=== PATIENT | female | born 1980 | race Caucasian/White ===

== ENCOUNTER 2022-08-16 12:31 | Day surgery (SDC) | payer OTHER ==
[2022-08-16] MEDS ORDERED: LIDOCAINE HCL 2% 100 MG/5 ML IJ ONE (12:32)
[2022-08-16] MEDS ORDERED: DIPRIVAN 200 MG/20 ML IV ONE (13:50)
--- NOTE | 2022-08-16 14:45 | XRAY ---
Indication: Left C2-C4 MBB. Intraoperative fluoroscopy provided for 28 seconds. 2 digital spot image submitted for interpretation demonstrates posterior needle tips projecting over the expected left C2-C4 nerve roots. Correlate with intraoperative findings/report.
--- NOTE | 2022-08-16 15:15 | XRAY ---
28 seconds of fluoroscopy was used in surgery for a left C2-C4 MBB.
[2022-08-16] MEDS ORDERED: Lactated Ringers 1,000 ML IV ONE (15:17)
== END 2022-08-16 14:45 | disposition home or self-care (01) ==
LOC: SDC-PAIN 12:31
PROVIDERS: ATTEND Psychiatry & Neurology Pain Medicine
DX: M47.812 Spondylosis without myelopathy or radiculopathy, cervical region (principal); Z79.899 Other long term (current) drug therapy
CPT/HCPCS: 64490; 64491; 72040; 77002; 81025; J2704

== ENCOUNTER 2022-09-20 10:08 | Day surgery (SDC) | payer OTHER ==
[2022-09-20] MEDS ORDERED: LIDOCAINE HCL 2% 100 MG/5 ML IJ ONE (10:09)
--- NOTE | 2022-09-20 12:50 | XRAY ---
34 seconds of fluoroscopy was used in surgery for a right C2-C4 MBB.
--- NOTE | 2022-09-20 12:54 | XRAY ---
Indication: Right C2-C4 MBB. Intraoperative fluoroscopy provided for 34 seconds. 2 digital spot image submitted for interpretation demonstrates posterior needle tips projecting over the expected right C2-C4 nerve roots. Correlate with intraoperative findings/report.
[2022-09-20] MEDS ORDERED: Lactated Ringers 1,000 ML IV ONE (13:27)
== END 2022-09-20 11:57 | disposition home or self-care (01) ==
LOC: SDC-PAIN 10:08
PROVIDERS: ATTEND Psychiatry & Neurology Pain Medicine
DX: M47.812 Spondylosis without myelopathy or radiculopathy, cervical region (principal); Z79.899 Other long term (current) drug therapy
CPT/HCPCS: 64490; 64491; 72040; 77002; 81025

== ENCOUNTER 2022-10-18 09:47 | Day surgery (SDC) | payer OTHER ==
[2022-10-18] MEDS ORDERED: BUPIVACAINE 0.5% VIAL IJ ONE (09:48)
[2022-10-18] MEDS ORDERED: DIPRIVAN 200 MG/20 ML IV ONE (11:09)
--- NOTE | 2022-10-18 12:58 | XRAY ---
Indication: Left C2-C4 MBB. Intraoperative fluoroscopy provided for 22 seconds. 2 digital spot images submitted for interpretation demonstrates posterior needle tips projecting over the expected left C2-C4 nerve roots. Correlate with intraoperative findings/report.
--- NOTE | 2022-10-18 13:08 | XRAY ---
22 seconds of fluoroscopy was used in surgery for a left C2-C4 MBB.
[2022-10-18] MEDS ORDERED: Lactated Ringers 1,000 ML IV ONE (14:02)
== END 2022-10-18 11:45 | disposition home or self-care (01) ==
LOC: SDC-PAIN 09:47
PROVIDERS: ATTEND Psychiatry & Neurology Pain Medicine
DX: M47.812 Spondylosis without myelopathy or radiculopathy, cervical region (principal); Z79.899 Other long term (current) drug therapy
CPT/HCPCS: 64490; 64491; 72040; 77002; 81025; J2704

== ENCOUNTER 2022-10-25 09:36 | Day surgery (SDC) | payer OTHER ==
[2022-10-25] MEDS ORDERED: BUPIVACAINE 0.5% VIAL IJ ONE (09:37)
[2022-10-25] MEDS ORDERED: DIPRIVAN 200 MG/20 ML IV ONE (11:04)
--- NOTE | 2022-10-25 12:13 | XRAY ---
Indication: Right C2-C4 MBB. Intraoperative fluoroscopy provided for 30 seconds. 2 digital spot image submitted for interpretation demonstrates posterior needle tips projecting over the expected right C2-C4 nerve roots. Correlate with intraoperative findings/report.
--- NOTE | 2022-10-25 12:37 | XRAY ---
30 seconds of fluoroscopy was used in surgery for a right C2-C4 MBB.
[2022-10-25] MEDS ORDERED: Lactated Ringers 1,000 ML IV ONE (14:17)
== END 2022-10-25 11:35 | disposition home or self-care (01) ==
LOC: SDC-PAIN 09:36
PROVIDERS: ATTEND Psychiatry & Neurology Pain Medicine
DX: M47.812 Spondylosis without myelopathy or radiculopathy, cervical region (principal); Z79.899 Other long term (current) drug therapy
CPT/HCPCS: 64490; 64491; 72040; 77002; 81025; J2704

== ENCOUNTER 2022-11-15 11:59 | Day surgery (SDC) | payer OTHER ==
[2022-11-15] MEDS ORDERED: LIDOCAINE HCL 1% 50 MG/5 ML VL PF IJ ONE (12:00)
[2022-11-15] MEDS ORDERED: Depo-Medrol 40 MG/ML IM ONE (12:00)
[2022-11-15] MEDS ORDERED: BUPIVACAINE 0.5% VIAL IJ ONE (12:00)
[2022-11-15] MEDS ORDERED: DIPRIVAN 200 MG/20 ML IV ONE ×2 (13:27→13:36)
[2022-11-15] MEDS ORDERED: SUBLIMAZE 100 MCG/2 ML ONE (13:45)
[2022-11-15] MEDS ORDERED: Lactated Ringers 1,000 ML IV ONE (14:29)
--- NOTE | 2022-11-15 14:45 | XRAY ---
35 seconds of fluoroscopy was used in surgery for a left C2-C4 RFA.
--- NOTE | 2022-11-15 14:47 | XRAY ---
Indication: Left C2-C4 RFA. Intraoperative fluoroscopy provided for 35 seconds. 5 digital spot image submitted for interpretation demonstrates posterior needle tips projecting over the expected left C2-C4 nerve roots. Correlate with intraoperative findings/report.
== END 2022-11-15 14:15 | disposition home or self-care (01) ==
LOC: SDC-PAIN 11:59
PROVIDERS: ATTEND Psychiatry & Neurology Pain Medicine
DX: M47.812 Spondylosis without myelopathy or radiculopathy, cervical region (principal); Z79.899 Other long term (current) drug therapy
CPT/HCPCS: 64633; 64634; 72040; 77002; 81025; J1030; J2001; J2704; J3010

== ENCOUNTER 2022-11-22 10:57 | Day surgery (SDC) | payer OTHER ==
[2022-11-22] MEDS ORDERED: BUPIVACAINE 0.5% VIAL IJ ONE (10:58)
[2022-11-22] MEDS ORDERED: XYLOCAINE 1% HCL 20 ML MDV IJ ONE (10:58)
[2022-11-22] MEDS ORDERED: DIPRIVAN 200 MG/20 ML IV ONE ×2 (13:04→13:20)
[2022-11-22] MEDS ORDERED: Versed 2 MG/2 ML Injection ONE (13:07)
--- NOTE | 2022-11-22 13:53 | XRAY ---
Indication: Right C2-C4 RFA. Intraoperative fluoroscopy provided for 33 seconds. 5 digital spot image submitted for interpretation demonstrates posterior needle tips projecting over the expected right C2-C4 nerve roots. Correlate with intraoperative findings/report.
--- NOTE | 2022-11-22 14:41 | XRAY ---
33 seconds of fluoroscopy used in surgery for a right C2-C4 RFA.
== END 2022-11-22 13:45 | disposition home or self-care (01) ==
LOC: SDC-PAIN 10:57
PROVIDERS: ATTEND Psychiatry & Neurology Pain Medicine
DX: M47.812 Spondylosis without myelopathy or radiculopathy, cervical region (principal); Z79.899 Other long term (current) drug therapy
CPT/HCPCS: 64633; 64634; 72040; 77002; 81025; J2250; J2704

== ENCOUNTER 2022-12-20 13:20 | Day surgery (SDC) | payer OTHER ==
[2022-12-20] MEDS ORDERED: LIDOCAINE HCL 1% 50 MG/5 ML VL PF IJ ONE (13:21)
[2022-12-20 14:08] LABS: HCG URINE TEST NEGATIVE (NEGATIVE)
[2022-12-20] MEDS ORDERED: DIPRIVAN 200 MG/20 ML IV ONE (15:10)
[2022-12-20] MEDS ORDERED: Lactated Ringers 1,000 ML IV ONE (15:39)
--- NOTE | 2022-12-20 16:28 | XRAY ---
Indication: Bilateral L4-S1 MBB. Intraoperative fluoroscopy provided for 18 seconds. Single digital spot image submitted for interpretation demonstrates posterior needle tips projecting over the expected left and right L4-S1 nerve roots. Correlate with intraoperative findings/report.
--- NOTE | 2022-12-20 16:37 | XRAY ---
18 seconds of fluoroscopy was used in surgery for a bilateral L4-S1 MBB.
== END 2022-12-20 15:45 | disposition home or self-care (01) ==
LOC: SDC-PAIN 13:20
PROVIDERS: ATTEND Psychiatry & Neurology Pain Medicine
DX: M47.816 Spondylosis without myelopathy or radiculopathy, lumbar region (principal); Z79.899 Other long term (current) drug therapy
CPT/HCPCS: 36415; 64493; 64494; 72020; 77002; 81025; J2001; J2704

== ENCOUNTER 2023-01-24 08:04 | Day surgery (SDC) | payer OTHER ==
[2023-01-24] MEDS ORDERED: BUPIVACAINE 0.5% VIAL IJ ONE (08:05)
[2023-01-24 09:00] LABS: HCG URINE TEST NEGATIVE (NEGATIVE)
[2023-01-24] MEDS ORDERED: DIPRIVAN 200 MG/20 ML IV ONE ×2 (09:34→09:35)
--- NOTE | 2023-01-24 10:07 | XRAY ---
Indication: Bilateral L4-S1 MBB. Intraoperative fluoroscopy was provided for 17 seconds. Single digital spot image submitted for interpretation demonstrates posterior needle tips projecting over the expected left and right L4-S1 nerve roots. Correlate with intraoperative findings/report.
--- NOTE | 2023-01-24 10:11 | XRAY ---
17 seconds of fluoroscopy was used in surgery for a bilateral L4-S1 MBB.
[2023-01-24] MEDS ORDERED: Lactated Ringers 1,000 ML IV ONE (15:15)
== END 2023-01-24 10:05 | disposition home or self-care (01) ==
LOC: SDC-PAIN 08:04
PROVIDERS: ATTEND Psychiatry & Neurology Pain Medicine
DX: M47.816 Spondylosis without myelopathy or radiculopathy, lumbar region (principal); Z79.899 Other long term (current) drug therapy
CPT/HCPCS: 64493; 64494; 72020; 77002; 81025; J2704

== ENCOUNTER 2023-02-21 09:59 | Day surgery (SDC) | payer OTHER ==
[2023-02-21] MEDS ORDERED: Depo-Medrol 40 MG/ML IM ONE (10:00)
[2023-02-21] MEDS ORDERED: BUPIVACAINE 0.5% VIAL IJ ONE (10:00)
[2023-02-21] MEDS ORDERED: LIDOCAINE HCL 1% 50 MG/5 ML VL PF IJ ONE (10:00)
[2023-02-21 10:14] LABS: HCG URINE TEST NEGATIVE (NEGATIVE)
[2023-02-21] MEDS ORDERED: DIPRIVAN 200 MG/20 ML IV ONE ×2 (11:21→11:27)
--- NOTE | 2023-02-21 13:10 | XRAY ---
Indication: Left L4-S1 RFA Intraoperative fluoroscopy provided for 26 seconds. 4 digital spot image submitted for interpretation demonstrates posterior needle tips projecting over the expected left L4-S1 nerve roots. Correlate with intraoperative findings/report.
[2023-02-21] MEDS ORDERED: Lactated Ringers 1,000 ML IV ONE (13:34)
--- NOTE | 2023-02-21 13:56 | XRAY ---
26 seconds of fluoroscopy was used in surgery for a left L4-S1 RFA.
== END 2023-02-21 12:05 | disposition home or self-care (01) ==
LOC: SDC-PAIN 09:59
PROVIDERS: ATTEND Psychiatry & Neurology Pain Medicine
DX: M47.816 Spondylosis without myelopathy or radiculopathy, lumbar region (principal); Z79.899 Other long term (current) drug therapy
CPT/HCPCS: 64635; 64636; 72100; 77002; 81025; J1030; J2001; J2704

== ENCOUNTER 2023-02-28 11:02 | Day surgery (SDC) | payer OTHER ==
[2023-02-28] MEDS ORDERED: Depo-Medrol 40 MG/ML IM ONE (11:03)
[2023-02-28] MEDS ORDERED: LIDOCAINE HCL 1% 50 MG/5 ML VL PF IJ ONE (11:03)
[2023-02-28] MEDS ORDERED: BUPIVACAINE 0.5% VIAL IJ ONE (11:03)
[2023-02-28 12:07] LABS: HCG URINE TEST NEGATIVE (NEGATIVE)
[2023-02-28] MEDS ORDERED: DIPRIVAN 200 MG/20 ML IV ONE (13:06)
--- NOTE | 2023-02-28 13:47 | XRAY ---
Indication: Right L4-S1 RFA Intraoperative fluoroscopy provided for 23 seconds. 3 digital spot image submitted for interpretation demonstrates posterior needle tips projecting over the expected right L4-S1 nerve roots. Correlate with intraoperative findings/report.
[2023-02-28] MEDS ORDERED: Lactated Ringers 1,000 ML IV ONE (14:35)
--- NOTE | 2023-02-28 15:13 | XRAY ---
23 seconds of fluoroscopy was used in surgery for a right L4-S1 RFA.
== END 2023-02-28 13:40 | disposition home or self-care (01) ==
LOC: SDC-PAIN 11:02
PROVIDERS: ATTEND Psychiatry & Neurology Pain Medicine
DX: M47.816 Spondylosis without myelopathy or radiculopathy, lumbar region (principal); Z79.899 Other long term (current) drug therapy
CPT/HCPCS: 64635; 64636; 72100; 77002; 81025; J1030; J2001; J2704

== ENCOUNTER 2024-03-12 08:00 | Day surgery (SDC) | payer OTHER ==
[2024-03-12] MEDS ORDERED: Depo-Medrol 40 MG/ML IM ONE (08:01)
[2024-03-12] MEDS ORDERED: Sodium Chloride 0.9(Preservative Free) 10 ML IJ ONE (08:01)
[2024-03-12] MEDS ORDERED: LIDOCAINE HCL 1% 50 MG/5 ML VL PF IJ ONE (08:01)
[2024-03-12 08:12] LABS: HCG URINE TEST NEGATIVE (NEGATIVE)
[2024-03-12] MEDS ORDERED: Lactated Ringers 1,000 ML IV ONE (09:04)
[2024-03-12] MEDS ORDERED: DIPRIVAN 200 MG/20 ML IV ONE (09:34)
--- NOTE | 2024-03-12 10:51 | XRAY ---
Indication: Lumbar SOCORRO. Intraoperative fluoroscopy provided for 19 seconds. 2 digital spot images submitted for interpretation demonstrates posterior needle tip projecting posterior to lumbosacral junction interspace. Small amount of contrast injected for needle tip placement. Correlate with intraoperative findings/report.
--- NOTE | 2024-03-12 12:25 | XRAY ---
19 seconds of fluoroscopy was used in surgery for a lumbar SOCORRO.
== END 2024-03-12 10:11 | disposition home or self-care (01) ==
LOC: SDC-PAIN 08:00
PROVIDERS: ATTEND Psychiatry & Neurology Pain Medicine
DX: M54.16 Radiculopathy, lumbar region (principal); R73.03 Prediabetes
CPT/HCPCS: 62323; 72100; 77003; 81025; 82947; J2001; J2704; Q9966